=== PATIENT | male | born 1945 | race Caucasian/White ===

== ENCOUNTER 2019-04-15 06:02 | Observation (INO) ==
[2019-04-15 07:05] LABS: INR 1.09; PROTIME 14.2 Seconds (11.0-16.0)
[2019-04-15 07:06] LABS: PTT 32.3 Seconds (22.3-41.8)
--- NOTE | 2019-04-15 09:38 | Diag Imaging Result Doc PS360 ---
EXAM: CHEST-2 VIEWS 04/15/2019 HISTORY: POST BX TECHNIQUE: Inspiratory expiratory chest COMMENT: There is a left apical pneumothorax measuring 2.6 cm on the inspiratory view. This was not present previously. There is also a small hematoma surrounding the nodule in the left upper lobe following the biopsy. No pleural fluid collections are present. IMPRESSION: Left pneumothorax complicating percutaneous biopsy. The findings were discussed with Salvatore Montanez MD at 04/15/2019 9:36 AM. Electronically signed by Cory Chakraborty 04/15/2019 9:36 AM
--- NOTE | 2019-04-15 09:40 | Diag Imaging Result Doc PS360 ---
EXAM: CT GUIDED BIOPSY LUNG 04/15/2019 HISTORY: mass left upper lobe TECHNIQUE: CT-guided biopsy of the left upper lobe COMMENT: The risks and benefits of the procedure including the possibility of bleeding, infection, reaction to lidocaine, or pneumothorax was discussed with the patient and he agreed to the procedure. Following sterile preparation of the skin anteriorly and administration 1% lidocaine to the skin and deeper soft tissues, a 20-gauge coaxial Temno core biopsy needle was employed to obtain four cores from the nodule. There is a minimal amount of hemoptysis following the biopsy. Post procedural radiographs demonstrate a small left pneumothorax. IMPRESSION: Successful left upper lobe biopsy complicated by pneumothorax. Electronically signed by Cory Chakraborty 04/15/2019 9:38 AM
[2019-04-15] MEDS ORDERED: NORCO-7.5 ONE (10:01)
--- NOTE | 2019-04-15 13:31 | Diag Imaging Result Doc PS360 ---
EXAM: CHEST-2 VIEWS 04/15/2019 HISTORY: post lung biopsy TECHNIQUE: Inspiratory expiratory chest COMMENT: The size of the left apical pneumothorax has increased from 2.9 cm on the expiration view two 6.1 cm. The inspiratory view demonstrates a 3.7 cm apical pneumothorax compared to 2.6 cm on the previous study. IMPRESSION: Enlargement of the left pneumothorax. The findings were discussed with Salvatore Montanez MD at 04/15/2019 1:29 PM. Electronically signed by Cory Chakraborty 04/15/2019 1:29 PM
--- NOTE | 2019-04-15 14:52 | Diag Imaging Result Doc PS360 ---
EXAM: CHEST-2 VIEWS 04/15/2019 HISTORY: post lung biopsy TECHNIQUE: Two views the chest is performed and expiratory AP COMMENT: The apical pneumothorax on the left has continued to increase in size now measuring 4.9 cm on the expiratory view and 4.5 cm on the inspiratory view. IMPRESSION: Continued enlargement of the left pneumothorax. Electronically signed by Cory Chakraborty 04/15/2019 2:50 PM
[2019-04-15] MEDS ORDERED: LEVBID PO PRN (15:00)
[2019-04-15] MEDS ORDERED: ATIVAN PO PRN (15:00)
[2019-04-15] MEDS: CARDIZEM PO SCH (15:42)
[2019-04-15] MEDS: NORCO-7.5 PO SCH ×3 (15:42→21:22)
--- NOTE | 2019-04-15 17:51 | Diag Imaging Result Doc PS360 ---
EXAM: CHEST-2 VIEWS 04/15/2019 HISTORY: pneumothorax TECHNIQUE: AP portable upright inspiratory and expiratory COMMENT: The left pneumothorax measures 4.5 cm in expiration and 4.9 cm on inspiration. This is similar in appearance to the previous study at 1445. IMPRESSION: Left pneumothorax which is probably stable. Electronically signed by Cory Chakraborty 04/15/2019 5:49 PM
[2019-04-15] MEDS ORDERED: AMBIEN PO SCH (21:00)
[2019-04-15] MEDS ORDERED: CARDURA PO SCH (21:00)
[2019-04-15] MEDS ORDERED: PROSCAR PO SCH (21:00)
[2019-04-15] MEDS: FIBERCON PO SCH (21:23)
--- NOTE | 2019-04-15 22:28 | GENERAL SURGERY CONSULTATION ---
DATE: 04/15/2019 REASON FOR CONSULTATION: Left-sided pneumothorax following percutaneous lung biopsy. HISTORY OF PRESENT ILLNESS: This is a 73-year-old gentleman who has a history of laryngectomy for head and neck carcinoma. He developed a left upper lobe pulmonary nodule concerning for primary lung carcinoma and underwent a CT-guided biopsy earlier today. Postoperative films showed a small to moderate-sized left apical pneumothorax. He has been in no new respiratory distress, and I was consulted. He feels well, has no pain, no shortness of breath. He is on room air via his stoma. PAST MEDICAL HISTORY: Documented in the HPI with the addition of BPH. He has hypertension and some anxiety. SURGICAL HISTORY: He has had over a radical laryngectomy with stoma placement. Denies any other thoracic surgery. SOCIAL HISTORY: A 40 pack year history of smoking denies current smoking and quit 10 years ago. No alcohol. He is in relatively good health. He has attentive family. FAMILY HISTORY: Reviewed and noncontributory. REVIEW OF SYSTEMS: Ten-point negative other than what was mentioned in HPI. PHYSICAL EXAMINATION: Vital signs: He is afebrile, pulse 78, blood pressure 128/82, oxygen saturation 97% on room air. General: He is alert and conversant in no acute distress. HEENT: He has a stoma and extensive radiation and surgical changes bilateral neck. Cardiovascular: Normal rate. Pulmonary: No increased work of breathing. Abdomen: Soft. Integument is warm and dry. Psychiatric: Appropriate affect. Neurologic: No gross deficits. Peripheral vascular: Some lower extremity noted in bilateral lower extremities. Examination of chest wall shows no crepitus, no subcutaneous air. DIAGNOSTIC DATA: I reviewed his CT-guided biopsy as well as x-ray postprocedural. ASSESSMENT AND PLAN: A 73-year-old gentleman with an apical pneumothorax on the left following left upper lobe percutaneous biopsy of the lung lesion. The pneumothorax has gradually enlarged. I do not see any mediastinal shift. He has no subcutaneous air, and he is in no respiratory distress and asymptomatic. As such, we will place him on supplemental O2 via the stoma. We will repeat an x-ray in the morning. I have asked the nurses to place him on continuous monitoring and have a chest tube at the bedside. I discussed with the patient the possibility and the high probability that he will require chest tube, and if he were to deteriorate overnight, he will need it more emergently versus in a more elective fashion tomorrow during the day to promote resolution of his pneumothorax. He understands and consents. We will continue to follow him while he is here closely. I spoke with the nurses about his care. His O2 will need to be administered via his stoma, and I have discussed this with the nurse as well. cc: MD Salvatore Arroyo MD
[2019-04-16] MEDS: CARDIZEM PO SCH ×2 (00:45→09:28)
[2019-04-16] MEDS ORDERED: NORCO-7.5 PO PRN (00:46)
[2019-04-16] MEDS ORDERED: LEVSIN PO PRN (03:04)
[2019-04-16] MEDS ORDERED: MUCINEX PO PRN (03:06)
--- NOTE | 2019-04-16 08:07 | Diag Imaging Result Doc PS360 ---
EXAM: CHEST-2 VIEWS 04/16/2019 HISTORY: lung biopsy TECHNIQUE: PA and lateral chest COMMENT: There is an apical pneumothorax on the left which now measures slightly less than 2.6 cm. That the time of the last radiograph on 04/15/2019 on the inspiratory view this measured 4.9 cm. The lungs are generally better expanded. IMPRESSION: Slightly diminished left pneumothorax. Electronically signed by Cory Chakraborty 04/16/2019 8:04 AM
[2019-04-16] MEDS ORDERED: PROTONIX PO SCH (09:00)
[2019-04-16] MEDS ORDERED: PERIDEX MT SCH (09:00)
[2019-04-16] MEDS ORDERED: ZYRTEC PO SCH ×2 (09:00→21:00)
[2019-04-16] MEDS ORDERED: LOTEMAX 0.5% BOTH EYES SCH (09:00)
[2019-04-16] MEDS ORDERED: LACTOSE REDUCED FOOD PO SCH (09:00)
[2019-04-16] MEDS: FIBERCON PO SCH (09:27)
[2019-04-16] MEDS: MYCOSTATIN SUSP PO SCH ×2 (09:27→12:19)
[2019-04-16 11:07] VITALS: BP 104/72
--- NOTE | 2019-04-16 12:12 | Diag Imaging Result Doc PS360 ---
EXAM: CHEST-2 VIEWS 04/16/2019 HISTORY: pneumothorax TECHNIQUE: Inspiratory expiratory chest at 1204 COMMENT: The left apical pneumothorax measures less than 2.3 cm on the inspiration view versus slightly less than 2.6 cm at the time the previous study at 0740. IMPRESSION: Continued diminishment in the left pneumothorax. Electronically signed by Cory Chakraborty 04/16/2019 12:10 PM
[2019-04-16] MEDS ORDERED: LEVSIN-SL PO PRN (13:40)
--- NOTE | 2019-04-16 21:32 | GENERAL SURGERY PROGRESS NOTE ---
DATE: 04/16/2019 SUBJECTIVE: He feels well. Denies any chest pains or shortness of breath. This morning on room air he is saturating in the mid 90s. He has no tachycardia. General: He is alert. Equal chest rise. The stoma is in place. He is conversant without any issues. I reviewed his x-ray this morning, PA and lateral, shows improvement in the left-sided apical pneumothorax. ASSESSMENT/PLAN: Persistent improvement of the left apical pneumothorax. It would be reasonable to follow him as an outpatient. [*]will plan on letting go home. I would like to see the patient in a week or 2. He did have biopsy confirmed non-small cell lung cancer. We will see him as an outpatient. cc: MD Salvatore Arroyo MD
--- NOTE | 2019-04-17 07:12 | HISTORY AND PHYSICAL ---
REASON FOR ADMISSION: Pneumothorax. HISTORY OF PRESENT ILLNESS: Mr. Carrion is a 73-year-old male with a 40 pack-year history for tobacco, who was diagnosed with laryngeal cancer in 2006 and underwent radiation therapy and subsequently underwent a laryngectomy in 2008. 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 He has not had recent pulmonary function studies, but reports he can walk up 2 flights of stairs. He underwent a chest x-ray which revealed a left upper lobe mass, and a CT scan was performed which revealed a 1.6 x 1.7 x 2 cm mass in the left upper lobe. The patient underwent CT-guided biopsy earlier today complicated by a small apical pneumothorax. The pneumothorax has increased on 2 successive chest x-rays, but remains too small to place a chest tube due to its apical nature. PAST MEDICAL HISTORY/PROBLEM LIST: 1. Laryngectomy with radiation treatments as per above. 2. History of sinusitis. 3. Gastroesophageal reflux disease. 4. History of skin cancer. 5. Peripheral vascular disease with stenosis of the carotid artery. 6. History of recurrent Helicobacter pylori infection. 7. History of ongoing abdominal issues with frequent diarrhea. SOCIAL HISTORY: The patient has a [id number] history for tobacco, but has not smoked in greater than 10 years. No alcohol use. FAMILY HISTORY: Positive for heart failure. REVIEW OF SYSTEMS: As noted in the HPI. PHYSICAL EXAMINATION: GENERAL: Reveals a well-developed, well-nourished male in no distress. Blood pressure 128/82. Heart rate 79, respiratory rate 16, oxygen saturation 94%. HEENT: Pupils are equal and reactive. Oropharynx appears clear. NECK: Notable for post radiation changes and a tracheostomy stoma in place. CHEST: Reveals good air entry bilaterally with occasional rhonchi. CARDIAC: S1 and S2. ABDOMEN: Soft. EXTREMITIES: Without edema. LABORATORIES: Chest x-ray at 1749 hours is stable with the pneumothorax at 4.5 cm on expiration and 4.9 cm on inspiration. IMPRESSION: A 73-year-old with small to moderate left-sided pneumothorax following CT-guided biopsy. Clinically, he is doing well and is in no distress. PLAN: 1. We will admit to the hospital for observation. 2. Initiate oxygen to help resorb pneumothorax. 3. Discussed the case with Dr. Aly Ruggiero in the event he requires a chest tube placement. 4. Followup chest x-ray in the morning. Consider discharge if he remains stable and continues to improve. cc: Salvatore Montanez MD
--- NOTE | 2019-04-17 23:07 | DISCHARGE SUMMARY ---
ADMISSION DATE: 04/15/2019 DISCHARGE DATE: 04/16/2019 ADMISSION DIAGNOSIS: Iatrogenic pneumothorax. DISCHARGE DIAGNOSIS: 1. Iatrogenic pneumothorax. 2. 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 HOSPITAL COURSE: Patient was admitted to the hospital for increasing left-sided pneumothorax. He underwent serial chest x-rays. The first 3 chest x-rays revealed increased pneumothorax, but the following morning it had decreased in size. The patient underwent 1 additional chest x-ray at noon on the day of discharge which continued to show resolution of pneumothorax. The patient did not require a chest tube. The biopsy was reviewed with the pathologist and was consistent with a non-small cell carcinoma. The patient is aware that he has a lung cancer. PLAN: 1. Discharge home today. The patient was informed that if he develops worsening shortness of breath that he should return immediately to the nearest emergency room or he should call 911 if he is in respiratory distress. 2. Outpatient PET scan and PFTs have been scheduled. 3. Follow up in my office after the studies have been completed. cc: MD Alli Lino MD
== END 2019-04-16 14:25 | disposition home or self-care (01) ==
LOC: OPS 06:02 → 4N 06:02
PROVIDERS: ADMIT Internal Medicine Pulmonary Disease; ATTEND Internal Medicine Pulmonary Disease